=== PATIENT | male | born 1950 | race Caucasian/White ===

== ENCOUNTER 2024-04-05 08:20 | Emergency (ER) | payer MEDICARE, SELFPAY ==
--- NOTE | ~2024-04-05 | XR_ITS ---
EXAMINATION: XR hand LT min 3V DATE: 04/05/2024 08:43 INDICATION: Left thumb pain and swelling. TECHNIQUE: 3 views of left hand were obtained. COMPARISON: None. FINDINGS: Bone alignment is normal. No fracture. There is mild osteoarthritis of distal radioulnar bartolo int, triscaphe joint, and first carpometacarpal joint and some of the interphalangeal joints. There i s severe osteoarthritis of second and third distal interphalangeal joints. IMPRESSION: 1. Polyarticular osteoarthritis. Reviewed, dictated and finalized at location A.
--- NOTE | 2024-04-05 08:34 | ED.UPPEXIN ---
HPI - Extremity Injury (Upper) General Chief Complaint: Extremity Injury, Upper Stated Complaint: thumb injury Time Seen by Provider: 04/05/24 08:25 History of Present Illness HPI narrative: This is a 73-year-old male, with history of hypertension, presents emergency department complaining of left thumb pain. The patient states pain began yesterday with no known cause. It is described as dull, rated 8/10, aggravated by movement and alleviated with icing/rest and associated some distal reddening of the left thumb. He denies associated fevers, rapidly spreading redness, loss of sensation or loss of strength. He has no other complaints at this time. Related Data Allergies Allergy/AdvReac Type Severity Reaction Status Date / Time Penicillins Allergy Anaphylaxis Verified 04/05/24 09:35 Review of Systems Review of Systems: All systems reviewed & are unremarkable except as noted in HPI and below PMFSH Past Medical History Medical History (Updated 04/05/24 @ 09:14 by Charly Pulido MD) Hypertension Surgical History Surgical History (Updated 04/05/24 @ 08:36 by Charly Pulido MD) No significant past surgical history Exam Narrative: GENERAL: Well-developed, well-nourished, and in no acute distress. HEAD: Normocephalic, atraumatic. CHEST: Clear to auscultation. No respiratory distress. No wheezes rales or rhonchi HEART: Regular rate and rhythm. No murmur heard. Normal peripheral pulses. EXTREMITIES: There is mild erythema noted over the dorsal aspect of the left thumb, just proximal to the nail matrix. There is a small amount of blanching noted at the proximal nail bed. There is no fluctuant mass noted in the thumb. Normal range of motion of all extremities. No edema. SKIN: Warm, dry, no rash. NEURO: Alert and oriented x3. No focal deficit. Moving all 4 limbs spontaneously PSYCH: Normal mood and affect. Course Course Emergency Course: 09:18 - X-ray not concerning for fracture dislocation. I suspect the patient's symptoms and related to paronychia, however there is no drainable fluid pocket. Will discharge with antibiotics and recommendation for hot compresses and primary care follow-up. I discussed the findings and recommendations with the patient. Discussed return and emergency precautions including signs/symptoms of neurovascular compromise and septic arthritis. The patient voiced understanding and agreement with the plan. All questions answered to his satisfaction. Vital Signs Vital signs: Vital Signs Temperature 97.9 F 04/05/24 08:38 Pulse Rate 65 04/05/24 08:38 Respiratory Rate 19 04/05/24 08:38 Blood Pressure 159/77 H 04/05/24 08:38 Pulse Oximetry 95 04/05/24 08:38 Oxygen Delivery Room Air 04/05/24 08:38 Temperature 97.9 F 04/05/24 08:38 Pulse Rate 67 04/05/24 09:40 Respiratory Rate 17 04/05/24 09:40 Blood Pressure 136/89 04/05/24 09:40 Pulse Oximetry 98 04/05/24 09:40 Oxygen Delivery Room Air 04/05/24 08:38 MDM - Extremity Injury (Upper) MDM Narrative Medical decision making narrative: Plan: Imaging, pain control, reassess Differential Diagnosis Differential diagnosis: Likely other (Finger fracture, paronychia, subungual hematoma, herpetic jennifer, other) Discharge Plan Discharge Clinical Impression: Pain of left thumb, Paronychia Patient Disposition: Home, Self-Care Condition: Stable Instructions: Antibiotic Form, Paronychia (ED) Additional Instructions: You were seen in the emergency department. An x-ray of the thumb was not concerning for fracture or dislocation. I suspect your symptoms are related to an infection. I recommend hot compresses, antibiotics and follow-up with a primary care doctor or hand doctor. If you develop fevers is rapidly spreading redness, the finger appears blue/cold, you develop a pocket of fluid, or if you have other emergent concerns for life, limb, or eyesight, return to the emergency department. [place]
[2024-04-05 08:38] VITALS: BP 159/77; PULSE 65; RESP 19; TEMP 36.6; O2SAT 95
[2024-04-05] MEDS: oxyCODONE/ACETAMINOPHEN (*CRX) 5-325 MG TABLET 1 TABLET PO (09:35)
[2024-04-05 09:40] VITALS: BP 136/89; PULSE 67; RESP 17; O2SAT 98
== END 2024-04-05 09:42 | disposition home or self-care (01) ==
PROVIDERS: Emergency Provider Preventive Medicine Aerospace Medicine
DX: L03.012 Cellulitis of left finger (principal); M79.645 Pain in left finger(s); I10 Essential (primary) hypertension
CPT/HCPCS: 73130; 99283; A9270